=== PATIENT | female | born 1955 | race Caucasian/White ===

== ENCOUNTER → 2016-03-14 | Outpatient (CLI) | payer BC | LOC: VM.DI 08:05 | PROVIDERS: ATTEND Internal Medicine | DX: M81.0 Age-related osteoporosis without current pathological fracture (principal); M85.80 Other specified disorders of bone density and structure, unspecified site | CPT/HCPCS: 77080 ==

== ENCOUNTER 2018-08-13 22:04 | Emergency (ER) | payer MEDICARE, OTHER ==
[2018-08-13] MEDS ORDERED: Lactated Ringers 1,000 ML IV ONE (22:14)
[2018-08-13] MEDS ORDERED: Sodium Chloride 0.9% 10 ML Syringe FLUSH PRN (22:14)
[2018-08-13] MEDS ORDERED: Morphine 4 MG/ML Syringe IVPUSH ONE (22:14)
[2018-08-13] MEDS ORDERED: Ondansetron 4 MG/2 ML SDV IVPUSH ONE (22:14)
--- NOTE | 2018-08-13 22:42 | EDM.PDOC ---
ED HPI GENERAL MEDICAL PROBLEM - General Chief Complaint: Abdominal Pain Stated Complaint: right lower quad pain Time Seen by Provider: 08/13/18 22:13 Source of Information: Reports: Patient, Family History Limitations: Reports: No Limitations - History of Present Illness INITIAL COMMENTS - FREE TEXT/NARRATIVE: Patient reports right lower quadrant pain that has been getting worse since yesterday morning. She has also had some nausea with this. Gall bladder has been removed. Still has appendix, uterus, and ovaries. Pain is described as sharp, stabbing, cramping and "all of the above" by the patient. Seems to originate in the right lower quadrant with radiation to the full abdominal cavity. Finds it difficult to fully stand erect due to severe pain to the abdomen. No recent illnesses. Denies diarrhea or constipation. Denies any urinary symptoms. No pain, blood, hesitancy, frequency or urgency with urination. Denies headache, chest pain, sob. No recent illnesses. Is here with daughter and they are requesting transfer to [place] to [place] there if any findings such as appendicitis. Primary is Dr. Joleen Billy in [place]. Onset Date: 08/12/18 Duration: Getting Worse, Intermittent Location: Reports: Abdomen Quality: Reports: Ache, Sharp, Stabbing Severity: Moderate Improves with: Reports: None Worsens with: Reports: Movement Associated Symptoms: Reports: Nausea/Vomiting lower abdomen, RLQ Pain Score (Numeric/FACES): 8 - Related Data Allergies Allergy/AdvReac Type Severity Reaction Status Date / Time No Known Allergies Allergy Verified 08/13/18 22:29 Past Medical History Cardiovascular History: Reports: Hypertension Psychiatric History: Reports: Depression ED ROS GENERAL - Review of Systems Review Of Systems: See Below Constitutional: Reports: No Symptoms HEENT: Reports: No Symptoms Respiratory: Reports: No Symptoms Cardiovascular: Reports: No Symptoms Endocrine: Reports: No Symptoms GI/Abdominal: Reports: Abdominal Pain, Nausea : Reports: No Symptoms Musculoskeletal: Reports: No Symptoms Skin: Reports: No Symptoms Neurological: Reports: No Symptoms Psychiatric: Reports: No Symptoms Hematologic/Lymphatic: Reports: No Symptoms Immunologic: Reports: No Symptoms ED EXAM, GI/ABD - Physical Exam Exam: See Below Exam Limited By: No Limitations General Appearance: Alert, WD/WN, Moderate Distress Eyes: Bilateral: Normal Appearance, EOMI Ears: Normal TMs Nose: Normal Inspection, Normal Mucosa, No Blood Throat/Mouth: Normal Inspection, Normal Lips, Normal Teeth, Normal Gums, Normal Oropharynx, Normal Voice, No Airway Compromise Head: Atraumatic, Normocephalic Neck: Normal Inspection, Supple, Non-Tender, Full Range of Motion Respiratory/Chest: No Respiratory Distress, Lungs Clear, Normal Breath Sounds, No Accessory Muscle Use, Chest Non-Tender Cardiovascular: Normal Peripheral Pulses, Regular Rate, Rhythm, No Edema, No Gallop, No JVD, No Murmur, No Rub GI/Abdominal Exam: Normal Bowel Sounds, Soft, No Organomegaly, No Distention, No Abnormal Bruit, No Mass, Pelvis Stable, Guarding, Rebound, Tender Back Exam: Normal Inspection, Full Range of Motion, NT Extremities: Normal Inspection, Normal Range of Motion, Non-Tender, Normal Capillary Refill, No Pedal Edema Neurological: Alert, Oriented, CN II-XII Intact, Normal Cognition, Normal Gait, Normal Reflexes, No Motor/Sensory Deficits Psychiatric: Normal Affect, Normal Mood Skin Exam: Warm, Dry, Intact, Normal Color, No Rash Lymphatic: No Adenopathy Course - Vital Signs Last Recorded V/S: Last Vital Signs Temp 37.1 C 08/14/18 00:22 Pulse 76 08/14/18 00:22 Resp 16 08/14/18 00:22 BP 123/57 L 08/14/18 00:22 Pulse Ox 98 08/14/18 00:22 - Orders/Labs/Meds Labs: Laboratory Tests 08/13/18 08/13/18 08/13/18 Range/Units 22:25 22:25 23:20 WBC 8.5 (4.0-10.0) x10^3/uL RBC 4.06 (4.00-5.50) x10^6/uL Hgb 13.3 (12.0-16.0) g/dL Hct 37.8 (33.0-47.0) % MCV 93.1 H (78.0-93.0) fL MCH 32.8 H (26.0-32.0) pg MCHC 35.2 (32.0-36.0) g/dL RDW Coeff of Yvonne 12.5 (10.0-15.0) % Plt Count 278 (130-400) x10^3/uL Neut % (Auto) 71.1 (50.0-80.0) % Lymph % (Auto) 19.6 L (25.0-50.0) % [place] % (Auto) 8.8 (2.0-11.0) % Eos % (Auto) 0.1 (0.0-4.0) % Baso % (Auto) 0.4 (0.2-1.2) % Sodium 139 (136-145) mmol/L Potassium 3.0 L (3.5-5.1) mmol/L Chloride 103 (98-107) mmol/L Carbon Dioxide 23 (21-32) mmol/L Anion Gap 16.0 (10-20) mmol/L BUN 10 (7-18) mg/dL Creatinine 0.6 (0.55-1.02) mg/dL Est Cr Clr Drug Dosing TNP Estimated GFR (MDRD) > 60 Glucose 106 (74-106) mg/dL Calcium 8.1 L (8.5-10.1) mg/dL Corrected Calcium 8.82 (8.5-10.1) mg/dL Magnesium 1.9 (1.8-2.4) mg/dL Total Bilirubin 0.3 (0.2-1.0) mg/dL AST 10 L (15-37) U/L ALT 17 (14-59) U/L Alkaline Phosphatase 55 (46-116) U/L C-Reactive Protein 14.2 H (<=0.9) mg/dL Total Protein 6.9 (6.4-8.2) g/dL Albumin 3.1 L (3.4-5.0) g/dL Globulin 3.8 Albumin/Globulin Ratio 0.82 Amylase 31 (25-115) U/L Urine Color Yellow (YELLOW) Urine Appearance Slightly cloudy H (CLEAR) Urine pH 7.0 (5.0-8.0) Ur Specific [place] 1.020 Urine Protein 30 H (NEGATIVE) mg/dL Urine Glucose (UA) Negative (NEGATIVE) mg/dL Urine Ketones 15 H (NEGATIVE) mg/dL Urine Occult Blood Trace-intact H (NEGATIVE) Urine Nitrite Negative (NEGATIVE) Urine Bilirubin Small H (NEGATIVE) Urine Urobilinogen 1.0 (0.2) EU/dL Ur Leukocyte Esterase Moderate H (NEGATIVE) Urine RBC 5-10 H (NOT SEEN) /HPF Urine WBC 10-20 H (NOT SEEN) /HPF Ur Squamous Epith Cells Rare (NEGATIVE) /HPF Urine Bacteria Rare (NEGATIVE) /HPF Meds: Medications Discontinued Medications Generic Name Dose Route Start Last Admin Trade Name Mauro PRN Reason Stop Dose Admin Hydromorphone HCl 1 mg 08/13/18 22:50 08/13/18 22:55 Dilaudid IVPUSH 08/13/18 22:51 1 mg ONETIME ONE Administration Hydromorphone HCl 1 mg 08/14/18 00:14 08/14/18 00:23 Dilaudid IVPUSH 08/14/18 00:15 1 mg ONETIME ONE Administration Lactated Ringer's 1,000 mls @ 999 mls/hr 08/13/18 22:14 08/13/18 22:40 Ringers, Lactated IV 08/13/18 23:14 999 mls/hr ONETIME ONE Administration Lactated Ringer's 1,000 mls @ 30 mls/hr 08/14/18 01:00 08/14/18 00:25 Ringers, Lactated IV 30 mls/hr ASDIRECTED MAGGI Administration Iopamidol 100 ml 08/13/18 23:25 08/13/18 23:40 Isovue-300 (61%) IVPUSH 08/13/18 23:26 100 ml ONETIME ONE Administration Morphine Sulfate 4 mg 08/13/18 22:14 08/13/18 22:45 Morphine IVPUSH 08/13/18 22:15 4 mg ONETIME ONE Administration Ondansetron HCl 4 mg 08/13/18 22:14 08/13/18 22:42 Zofran IVPUSH 08/13/18 22:15 4 mg ONETIME ONE Administration Sodium Chloride 10 ml 08/13/18 22:14 Saline Flush FLUSH ASDIRECTED PRN Keep Vein Open - Radiology Interpretation Free Text/Narrative:: CT shows acute appendicitis. Appendix measuring 15.3 mm, fat stranding, impacted appendicolith at appendix base, reactive inflammatory non-loculated free fluid adjacent to tip of appendix Departure - Departure Time of Disposition: 01:08 Disposition: DC/Tfer to Acute Hospital 02 Condition: Good Clinical Impression: Appendicitis - Discharge Information *PRESCRIPTION DRUG MONITORING PROGRAM REVIEWED*: Not Applicable *COPY OF PRESCRIPTION DRUG MONITORING REPORT IN PATIENT RUBEN: Not Applicable Referrals: Joleen Billy, DO [Primary Care Provider] - Forms: ED Department Discharge, Interfacility Transfer [facility] ED Communication - ED Communication Date/Time Date: 08/14/18 Time Called: 00:29 - Discussed Case With (1) Discussed Case With (1): Admitting Provider (Dr. Issa with general surgery was called to review patient. Care was accepted. Transfer to [facility] via ambulance.)
[2018-08-13] MEDS ORDERED: HYDROmorphone 1 MG/ML Syringe IVPUSH ONE (22:50)
[2018-08-13 22:51] LABS: CHLORIDE,CL 103 mmol/L (98-107); SODIUM,NA 139 mmol/L (136-145)
[2018-08-13] MEDS ORDERED: Iopamidol 612 MG/ML 100 ML Bottle IVPUSH ONE (23:25)
[2018-08-14] MEDS ORDERED: HYDROmorphone 1 MG/ML Syringe IVPUSH ONE (00:14)
[2018-08-14] MEDS ORDERED: Lactated Ringers 1,000 ML IV SCH (01:00)
--- NOTE | 2018-08-14 07:48 | CT ---
[id number] CT/CT Abdomen Pelvis W IV EXAM: CT Abdomen Pelvis W IV CLINICAL DATA: RIGHT LOWER QUADRANT PAIN, NAUSEA COMPARISON STUDY: None. FINDINGS: Lung bases are clear. Mild intra and extrahepatic biliary ductal dilatation likely related to cysts prior cholecystectomy. The liver is otherwise unremarkable. The spleen, kidneys and adrenal glands are unremarkable. Bilateral renal cysts. No hydronephrosis or hydroureter. No suspicious renal lesions. The appendix is dilated measuring up to 1.3 cm. There is an appendicolith within the proximal portion of the appendix. 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 Small amount of free fluid within the right lower quadrant and pelvis likely reactive in nature. A few prominent loops of small bowel suggestive of reactive ileus. Colonic diverticulosis without evidence of acute diverticulitis. Atherosclerotic calcifications of the aorta and its branches. Scattered changes of spondylosis the spine. No fracture or osseous lesion. IMPRESSION: 1. Acute appendicitis. Small amount of free fluid adjacent to the inflamed appendix. No definite fluid collection or free air. Eusebio Flannery DO 08/14/18 0746 Thank you for allowing us to participate in the care of your patient.
== END 2018-08-14 01:08 | disposition short-term general hospital (02) ==
LOC: VM.ED 22:04
DX: K37 Unspecified appendicitis (principal); I10 Essential (primary) hypertension; F32.9 Major depressive disorder, single episode, unspecified
CPT/HCPCS: 74177; 80053; 81001; 82150; 83735; 85025; 86140; 96361; 96374; 96375; 96376; 99284-GF; 99285-25; J1170; J2270; J2405; J7120; Q9967

== ENCOUNTER 2024-05-02 09:21 | Day surgery (SDC) | payer MEDICARE, OTHER ==
[2024-05-02] MEDS: Lactated Ringers 1,000 ML IV SCH (09:35)
[2024-05-02] MEDS ORDERED: Propofol 200 MG/20 ML SDV ONE (11:07)
[2024-05-02] MEDS ORDERED: fentaNYL 100 MCG/2 ML SDV ONE (11:12)
[2024-05-02] MEDS ORDERED: Ondansetron 4 MG/2 ML SDV ONE (11:35)
== END 2024-05-02 12:53 | disposition home or self-care (01) ==
LOC: VM.SDS 09:21
PROVIDERS: ATTEND Student in an Organized Health Care Education/Training Program
DX: Z12.11 Encounter for screening for malignant neoplasm of colon (principal); I10 Essential (primary) hypertension; F41.9 Anxiety disorder, unspecified; M81.0 Age-related osteoporosis without current pathological fracture; F32.5 Major depressive disorder, single episode, in full remission; K21.9 Gastro-esophageal reflux disease without esophagitis; G43.909 Migraine, unspecified, not intractable, without status migrainosus; E78.00 Pure hypercholesterolemia, unspecified; F17.210 Nicotine dependence, cigarettes, uncomplicated
CPT/HCPCS: G0121; J2405; J2704; J3010; J7120; 00812; 99100